=== PATIENT | female | born 1955 | race Caucasian/White ===

== ENCOUNTER → 2020-05-31 | Outpatient (CLI) | payer OTHER ==
[~2020-05-31] MED LIST: CONTRAST GIVEN. MC PRN; IOHEXOL 240 MG/ML 50ML VIAL. PO ONE; IOHEXOL 300 MG/ML 100ML VIAL. IV ONE
--- NOTE | 2020-05-31 11:26 | RAD ---
EXAM: CT Abdomen and Pelvis with IV contrast CLINICAL HISTORY: BENIGN LIPOMAOUS NEOPLASM OF SKIN AND SUBCUTANEOUS TISSUE OF TRUNK. COMPARISON: none TECHNIQUE: Helical CT of the abdomen and pelvis was performed following the administration of IV contrast. Axial, coronal and sagittal reformatted images were generated. ---PQRS compliance statement - One or more of the following individualized dose reduction techniques were utilized for this study: 1. Automated exposure control 2. Adjustment of the mA and/or kV according to patient size 3. Use of iterative reconstruction technique--- FINDINGS: Lower chest: Linear opacities lung bases likely scarring/atelectasis. Abdomen and pelvis: Liver and biliary system: Focal low-attenuation along falciform ligament likely focal fatty infiltration. Gallbladder is normal. No biliary ductal dilatation. Spleen: Unremarkable Pancreas: Unremarkable Adrenal glands: Unremarkable Kidneys: Symmetric nephrograms. Cortical thinning posterior aspect left kidney likely prior cortical scarring. No focal renal lesion. No hydronephrosis. No hydroureter. Lymph nodes/retroperitoneum: No abdominal or pelvic lymphadenopathy. Vessels: Aorta is normal in caliber with intermittent atherosclerotic calcifications. Bowel/Peritoneal cavity: Colonic diverticulosis particularly within the sigmoid colon with trace associated infiltration may be seen with acute diverticulitis. No loculated fluid collection. No small or large bowel dilatation. No bowel obstruction. No abdominal pelvic ascites. Abdominal wall: Small fat-containing periumbilical hernia is seen with trace infiltration may be symptomatic. Small fat-containing right inguinal hernia. Bladder: Unremarkable Bones: Initial tuberosity enthesopathy. Degenerative changes of the spine are seen. Trace anterolisthesis of L5 on S1. IMPRESSION: 1. Small fat-containing periumbilical hernia with trace associated infiltration, may be symptomatic. 2. Trace infiltration about sigmoid diverticula may represent changes of diverticulitis and can be correlated with patient's symptoms. No loculated fluid collection or evidence for perforation. 3. No evidence for bowel obstruction. Electronically signed by: Louie Mendoza MD (05/31/2020 11:23 AM) [id number]
== END ==
LOC: CT 08:42
PROVIDERS: ATTEND Nurse Practitioner Family
DX: K42.9 Umbilical hernia without obstruction or gangrene (principal); K40.90 Unilateral inguinal hernia, without obstruction or gangrene, not specified as recurrent; D17.1 Benign lipomatous neoplasm of skin and subcutaneous tissue of trunk
CPT/HCPCS: 74177; Q9966; Q9967

== ENCOUNTER → 2020-12-05 | Outpatient (CLI) | payer OTHER ==
--- NOTE | 2020-12-05 15:57 | RAD ---
EXAM: Thoracic spine, 3 views. HISTORY: Pain. COMPARISON: None. FINDINGS: 3 views of the thoracic spine are obtained. There is multilevel endplate remodeling and ant erior predominant spurring. No fracture is seen. There is no significant listhesis. There is also end plate remodeling with disc space narrowing and osteophytosis at C3-C4, not formally assessed on this exam. IMPRESSION: Multilevel degenerative change. No acute osseous finding. Electronically signed by: Liane Baker MD (12/05/2020 3:54 PM) [id number]
== END ==
LOC: RAD 14:31
PROVIDERS: ATTEND Nurse Practitioner Family
DX: M19.012 Primary osteoarthritis, left shoulder (principal); M77.8 Other enthesopathies, not elsewhere classified
CPT/HCPCS: 72072; 73030

== ENCOUNTER → 2021-01-19 | Outpatient (CLI) | payer OTHER ==
--- NOTE | 2021-01-19 09:25 | RAD ---
STUDY: CT thoracic spine without contrast INDICATION: Thoracic spine pain. Degeneration. COMPARISON: Thoracic spine radiographs 12/05/2020; CT abdomen/pelvis 05/31/2020 TECHNIQUE: Axial CT imaging of the thoracic spine performed without the use of contrast. Coronal and sagittal reformats were obtained. One or more of the following individualized dose reduction techniques were utilized for this examinat ion: 1. Automated exposure control 2. Adjustment of the mA and/or kV according to patient size 3. Use of iterative reconstruction technique. FINDINGS: No acute fracture or focally aggressive osseous process. Mild sigmoid thoracic curvature. Slight exaggeration of lower thoracic kyphosis. Multilevel paraverte bral osteophytes greater in size on the right particularly from T8-T9 through T12-L1. Moderate discog enic arthrosis at T12-L1 and mild scattered elsewhere. Facet arthrosis is mild at several levels such as bilaterally at T7-T8. No large disc osteophyte comp kait. No evidence for relevant central canal stenosis. No severe osseous neural foraminal stenosis. Scattered calcific atherosclerosis. Mild paraseptal cystic change at the upper lungs. No pulmonary no dule is identified that would warrant short-term follow-up. IMPRESSION: 1. No acute or aggressive osseous abnormality. 2. Mild sigmoid thoracic curvature and mild exaggeration of lower thoracic kyphosis. Moderate discog enic arthrosis at T12-L1 and mild at several additional levels. Mild facet arthrosis. There is no rainer dence for significant central canal or neural foraminal stenosis. If there is ongoing concern MRI wou ld be more sensitive to detect relevant stenoses. Electronically signed by: RITA TRAN MD (01/19/2021 9:22 AM) [facility]
== END ==
LOC: CT 08:07
PROVIDERS: ATTEND Nurse Practitioner Family
DX: M47.814 Spondylosis without myelopathy or radiculopathy, thoracic region (principal); M51.34 Other intervertebral disc degeneration, thoracic region; M43.8X4 Other specified deforming dorsopathies, thoracic region; M25.78 Osteophyte, vertebrae
CPT/HCPCS: 72128

== ENCOUNTER 2021-02-19 10:47 | Inpatient (IN) | payer SELFPAY ==
[~2021-02-19] VITALS: Ht 170.2 cm; Wt 78.6 kg
[2021-02-19 11:50] LABS: BASO % 1 % (0-3); EOS % 0 % (0-3); HEMATOCRIT 46.4 % (36.0-47.0); HEMOGLOBIN 16.1 g/dL (12.0-15.5); LYMPH # 1.1 x10^3/uL (1.0-4.8); LYMPH % 24 % (24-48); MEAN CORPUSCULAR HEMOGLOBIN 33 pg (25-35); MEAN CORPUSCULAR HGB CONC 35 g/dL (31-37); MEAN CORPUSCULAR VOLUME 95 fL (79-100); MONO # 0.6 x10^3/uL (0.0-1.1); MONO % 14 % (0-9); NEUT # 2.9 x10^3/uL (1.8-7.7); NEUT % 62 % (31-73); PLATELET COUNT 149 x10^3/uL (140-400); RED BLOOD COUNT 4.91 x10^6/uL (3.50-5.40); RED CELL DISTRIBUTION WIDTH 12.6 % (11.5-14.5); WHITE BLOOD COUNT 4.7 x10^3/uL (4.0-11.0)
[2021-02-19 11:51] LABS: BILIRUBIN,URINE NEGATIVE (NEG); CLARITY,URINE CLEAR; COLOR,URINE YELLOW; NITRITE,URINE NEGATIVE (NEG); PROTEIN,URINE NEGATIVE (NEG-TRACE); UROBILINOGEN,URINE 0.2 mg/dL (0.2 mg/dL)
[2021-02-19] MEDS ORDERED: IOHEXOL 300 MG/ML 100ML VIAL. IV ONE (12:00)
[2021-02-19] MEDS ORDERED: CONTRAST GIVEN. MC PRN (12:00)
[2021-02-19] MEDS ORDERED: fentaNYL PF VIAL 100 MCG/2 ML VIAL IVP ONE (12:00)
[2021-02-19] MEDS ORDERED: ONDANSETRON PF 4 MG/2 ML VIAL. IVP ONE (12:00)
[2021-02-19 12:01] LABS: BACTERIA,URINE 0 /HPF (0-FEW); RBC,URINE 0 /HPF (0-2); WBC,URINE 0 /HPF (0-4)
[2021-02-19 12:05] LABS: CALCIUM 8.6 mg/dL (8.5-10.1); CREATININE 0.7 mg/dL (0.6-1.0); GFR 84.5; POTASSIUM 3.8 mmol/L (3.5-5.1)
--- NOTE | 2021-02-19 12:09 | ED.ADGEN ---
Past Medical History Additional Past Medical Histor: hernia x 2 Past Surgical History: Other Additional Past Surgical Histo: R hip General Adult EDM: Chief Complaint: ABDOMINAL PAIN HPI: HPI: Patient is a 65 year old female who presents to the emergency department with complaints of pain in her right abdomen and flank for the last 3 days. Patient states she had a fever over 101 earlier today. She reports nausea at this time but denies any vomiting, diarrhea, difficulty voiding, dysuria, hematuria, or increased urinary frequency. Patient states she has a chronic smoker's cough, she denies any recent change in her cough, chest pain, shortness of breath, palpitations, dizziness, or loss of taste/smell. Patient reports she has a hi story of an umbilical and a right inguinal hernia. She states that her side is hurt so bad that she has not been able to wear her umbilical hernia binder. She has not been immunized against COVID-19, she was going to go this week to get the immunization but was not feeling well so she postponed her plans. She currently rates her pain a 6 out of 10 on the pain scale, she denies any alleviating factors, the pain is worse with palpation. Review of Systems: Review of Systems: Complete ROS is negative unless otherwise noted in HPI. Current Medications: Current Medications Medications (Trade) Dose Ordered Sig/Dalia Start Time Stop Time Status Last Admin Dose Admin Acetaminophen (Tylenol) 650 mg 1X ONCE 02/19/21 13:30 02/19/21 13:32 DC Fentanyl Citrate (Fentanyl 2ml Vial) 50 mcg 1X ONCE 02/19/21 12:00 02/19/21 12:01 DC Info (CONTRAST GIVEN -- Rx MONITORING) 1 each PRN DAILY PRN 02/19/21 12:00 02/21/21 11:59 Iohexol (Omnipaque 300 Mg/ml) 75 ml 1X ONCE 02/19/21 12:00 02/19/21 12:01 DC 02/19/21 12:00 75 ML Morphine Sulfate (Morphine Sulfate) 2 mg 1X ONCE 02/19/21 13:45 02/19/21 13:46 DC 02/19/21 13:45 2 MG Ondansetron HCl (Zofran) 4 mg 1X ONCE 02/19/21 12:00 02/19/21 12:01 DC Sodium Chloride 1,000 ml @ 1,000 mls/hr 1X ONCE 02/19/21 13:00 02/19/21 13:59 DC 02/19/21 13:44 1,000 MLS/HR Allergies: Allergies: Allergies Coded Allergies Type Severity Reaction Last Updated Verified No Known Drug Allergies 05/31/20 No Physical Exam: PE: See Above Constitutional: Well developed, well nourished, no acute distress, non-toxic appearance. [] HENT: Normocephalic, atraumatic, bilateral external ears normal, nose normal. [] Eyes: PERRLA, EOMI, conjunctiva normal, no discharge. [] Neck: Normal range of motion, no stridor. [] Cardiovascular:Heart rate regular rhythm Lungs & Thorax: Respirations even and unlabored, no retractions, no respiratory distress Abdomen: soft, right upper quadrant and right lower quadrant tenderness to palpation, no rebound tenderness, no guarding, no palpable mass, no pulsatile mass Back: No CVA tenderness Skin: Warm, dry, no erythema, no rash. [] Extremities: No cyanosis, ROM intact, no edema. [] Neurologic: Alert and oriented X 3, normal motor, normal sensory, no focal deficits noted. [] Psychologic: Affect normal, judgement normal, mood normal. [] Current Patient Data: Labs: Laboratory Tests Test 02/19/21 11:15 White Blood Count 4.7 x10^3/uL (4.0-11.0) Red Blood Count 4.91 x10^6/uL (3.50-5.40) Hemoglobin 16.1 g/dL (12.0-15.5) H Hematocrit 46.4 % (36.0-47.0) Mean Corpuscular Volume 95 fL (79-100) Mean Corpuscular Hemoglobin 33 pg (25-35) Mean Corpuscular Hemoglobin Concent 35 g/dL (31-37) Red Cell Distribution Width 12.6 % (11.5-14.5) Platelet Count 149 x10^3/uL (140-400) Neutrophils (%) (Auto) 62 % (31-73) Lymphocytes (%) (Auto) 24 % (24-48) Monocytes (%) (Auto) 14 % (0-9) H Eosinophils (%) (Auto) 0 % (0-3) Basophils (%) (Auto) 1 % (0-3) Neutrophils # (Auto) 2.9 x10^3/uL (1.8-7.7) Lymphocytes # (Auto) 1.1 x10^3/uL (1.0-4.8) Monocytes # (Auto) 0.6 x10^3/uL (0.0-1.1) Eosinophils # (Auto) 0.0 x10^3/uL (0.0-0.7) Basophils # (Auto) 0.0 x10^3/uL (0.0-0.2) Urine Collection Type Unknown Urine Color Yellow Urine Clarity Clear Urine pH 6.0 (<5.0-8.0) Urine Specific Sikes 1.010 (1.000-1.030) Urine Protein Negative mg/dL (NEG-TRACE) Urine Glucose (UA) Negative mg/dL (NEG) Urine Ketones (Stick) Negative mg/dL (NEG) Urine Blood Moderate (NEG) Urine Nitrite Negative (NEG) Urine Bilirubin Negative (NEG) Urine Urobilinogen Dipstick 0.2 mg/dL (0.2 mg/dL) Urine Leukocyte Esterase Negative (NEG) Urine RBC 0 /HPF (0-2) Urine WBC 0 /HPF (0-4) Urine Squamous Epithelial Cells Few /LPF Urine Bacteria 0 /HPF (0-FEW) Sodium Level 135 mmol/L (136-145) L Potassium Level 3.8 mmol/L (3.5-5.1) Chloride Level 96 mmol/L (98-107) L Carbon Dioxide Level 29 mmol/L (21-32) Anion Gap 10 (6-14) Blood Urea Nitrogen 5 mg/dL (7-20) L Creatinine 0.7 mg/dL (0.6-1.0) Estimated GFR (Cockcroft-Gault) 84.5 BUN/Creatinine Ratio 7 (6-20) Glucose Level 114 mg/dL (70-99) H Calcium Level 8.6 mg/dL (8.5-10.1) Magnesium Level 1.6 mg/dL (1.8-2.4) L Total Bilirubin 0.4 mg/dL (0.2-1.0) Aspartate Amino Transferase (AST) 21 U/L (15-37) Alanine Aminotransferase (ALT) 22 U/L (14-59) Alkaline Phosphatase 77 U/L (46-116) Troponin I Quantitative < 0.017 ng/mL (0.000-0.055) Total Protein 7.9 g/dL (6.4-8.2) Albumin 3.8 g/dL (3.4-5.0) Albumin/Globulin Ratio 0.9 (1.0-1.7) L Lipase 152 U/L (73-393) Laboratory Tests 02/19/21 11:15 Laboratory Tests 02/19/21 11:15 Vital Signs: Vital Signs Date Time Temp Pulse Resp B/P (MAP) Pulse Ox O2 Delivery O2 Flow Rate FiO2 02/19/21 13:45 18 93 2.0 02/19/21 11:05 98.4 90 137/86 Room Air 98.4 EKG: EK-sinus rhythm rate 81 WPW present with abnormal left axis deviation no STEMI, read by Dr. Aquino [] Heart Score: C/O Chest Pain: No Radiology/Procedures: Radiology/Procedures: PROCEDURE: CHEST AP ONLY EXAMINATION: Chest radiograph. VIEWS: Single view COMPARISON: 01/19/2021 INDICATION:65 years, Female, cough and hypoxia. FINDINGS: Normal cardiomediastinal silhouette. Bibasilar subsegmental atelectasis. No focal consolidation. No pleural effusion or pneumothorax. No acute osseous process. IMPRESSION: Bibasilar subsegmental atelectasis. Otherwise, no acute cardiopulmonary process. Electronically signed by: Charles Bell MD (02/19/2021 12:31 PM) [id number] PROCEDURE: CT ABD PELV W/ IV CONTRST ONLY EXAMINATION: CT abdomen and pelvis with IV contrast. INDICATION:65 years, Female, right-sided abdominal pain. TECHNIQUE: Axial CT images of the abdomen and pelvis were obtained. Coronal and sagittal reformatted performed. COMPARISON: 05/31/2020. Exposure: One or more of the following individualized dose reduction techniques were utilized for this examination: 1. Automated exposure control 2. Adjustment of the mA and/or kV according to patient size 3. Use of iterative reconstruction technique. FINDINGS: LOWER CHEST: Unremarkable ABDOMEN/PELVIS: Normal morphology and size of the liver with homogeneous enhancement. Focal fat infiltration adjacent to falciform ligament. No suspicious focal hepatic lesion. Spleen, gallbladder and biliary ducts. Atrophic pancreatic parenchyma. Nodular thickening of the left adrenal gland without discrete nodule. Right adrenal gland is unremarkable. No hydronephrosis in either kidney. No nephrolithiasis. Colonic diverticulosis without diverticulitis. No bowel dilatation. Normal appendix. Mild aortoiliac atherosclerotic calcifications without significant narrowing. Mesenteric arteries and portal vein are patent. No pneumoperitoneum or ascites. No abdominopelvic lymphadenopathy by size criteria. Fat stranding in the midline and right paramidline greater omentum which herniated throughout small to moderate size umbilical hernia. Unremarkable urinary bladder. Punctate calcifications in the uterus, nonspecific. No suspicious pelvic masses. MUSCULOSKELETAL: Unchanged grade 1 anterolisthesis of L5 over S1 with severe degenerative changes. Multilevel changes in the lumbar spine. Small fat-containing right inguinal hernia. Umbilical hernia as described above. IMPRESSION: Small to moderate-sized supraumbilical hernia containing omental fat with haziness, this hernia is slightly increasing size since May 2020. Additional, new fat stranding seen in the midline and right paramidline omental fat at the level of hernia. Findings may reflect acute omental fat inflammation. Clinical correlation is advised. Electronically signed by: Charles Bell MD (02/19/2021 1:11 PM) [id number] [] Course & Med Decision Making: Course & Med Decision Making Pertinent Labs and Imaging studies reviewed. (See chart for details) 1355-spoke with Dr. Baker who is the admitting physician, and care was assumed following discussion of patient. Will admit patient for intractable abdominal pain, hypoxia, and PUI. Will consult Dr. Amado Patient's vital signs stable.. Patient remains afebrile, appears nontoxic, respirations even and unlabored. Patient will be admitted to the medical/surgical floor. Patient's case and plan of care also discussed with Dr. Aquino [] Antoinette Disclaimer: Antoinette Disclaimer: This electronic medical record was generated, in whole or in part, using a voice recognition dictation system. Departure Departure Referrals: SONIA STORM NP (PCP) DALLIN DELUCA APRN Feb 19, 2021 12:09
[2021-02-19 12:11] LABS: ALBUMIN 3.8 g/dL (3.4-5.0); ALBUMIN/GLOBULIN RATIO 0.9 (1.0-1.7); MAGNESIUM 1.6 mg/dL (1.8-2.4); TOTAL BILIRUBIN 0.4 mg/dL (0.2-1.0); TOTAL PROTEIN 7.9 g/dL (6.4-8.2)
--- NOTE | 2021-02-19 12:33 | RAD ---
EXAMINATION: Chest radiograph. VIEWS: Single view COMPARISON: 01/19/2021 INDICATION:65 years, Female, cough and hypoxia. FINDINGS: Normal cardiomediastinal silhouette. Bibasilar subsegmental atelectasis. No focal consolidation. No p leural effusion or pneumothorax. No acute osseous process. IMPRESSION: Bibasilar subsegmental atelectasis. Otherwise, no acute cardiopulmonary process. Electronically signed by: Charles Bell MD (02/19/2021 12:31 PM) [id number]
[2021-02-19] MEDS ORDERED: IV NORMAL SALINE 1000ML BAG 1,000 ML IV ONE (13:00)
--- NOTE | 2021-02-19 13:13 | RAD ---
EXAMINATION: CT abdomen and pelvis with IV contrast. INDICATION:65 years, Female, right-sided abdominal pain. TECHNIQUE: Axial CT images of the abdomen and pelvis were obtained. Coronal and sagittal reformatted performed. COMPARISON: 05/31/2020. Exposure: One or more of the following individualized dose reduction techniques were utilized for thi s examination: 1. Automated exposure control 2. Adjustment of the mA and/or kV according to patient size 3. Use of iterative reconstruction technique. FINDINGS: LOWER CHEST: Unremarkable ABDOMEN/PELVIS: Normal morphology and size of the liver with homogeneous enhancement. Focal fat infiltration adjacent to falciform ligament. No suspicious focal hepatic lesion. Spleen, gallbladder and biliary ducts. At rophic pancreatic parenchyma. Nodular thickening of the left adrenal gland without discrete nodule. R ight adrenal gland is unremarkable. No hydronephrosis in either kidney. No nephrolithiasis. Colonic diverticulosis without diverticulitis. No bowel dilatation. Normal appendix. Mild aortoiliac atherosclerotic calcifications without significant narrowing. Mesenteric arteries and portal vein are patent. No pneumoperitoneum or ascites. No abdominopelvic lymphadenopathy by size criteria. Fat stra nding in the midline and right paramidline greater omentum which herniated throughout small to modera te size umbilical hernia. Unremarkable urinary bladder. Punctate calcifications in the uterus, nonspe cific. No suspicious pelvic masses. MUSCULOSKELETAL: Unchanged grade 1 anterolisthesis of L5 over S1 with severe degenerative changes. Multilevel changes in the lumbar spine. Small fat-containing right inguinal hernia. Umbilical hernia as described above . IMPRESSION: Small to moderate-sized supraumbilical hernia containing omental fat with haziness, this hernia is sl ightly increasing size since May 2020. Additional, new fat stranding seen in the midline and righ t paramidline omental fat at the level of hernia. Findings may reflect acute omental fat inflammation . Clinical correlation is advised. Electronically signed by: Charles Bell MD (02/19/2021 1:11 PM) [id number]
[2021-02-19] MEDS ORDERED: ACETAMINOPHEN 325 MG TABLET. PO ONE (13:30)
[2021-02-19] MEDS ORDERED: MORPHINE SULFATE 2 MG/ML INJ. IV ONE (13:45)
[2021-02-19] MEDS ORDERED: MORPHINE SULFATE 4 MG/ML INJ. IV ONE (13:45)
--- NOTE | 2021-02-19 13:57 | PDOC1 ---
History and Physical Date of Admission Date of Admission DATE: 02/19/21 TIME: 13:54 Identification/Chief Complaint Chief Complaint Abdominal pain Source Source: Patient History of Present Illness History of Present Illness Ms Harden is a 65 year old female with past medical history 2 pack/day smoking and right inguinal and abdominal wall hernia who presents to ED with her daughter c/o pain in her right abdomen and flank for the last 3 days. Pain is sharp like a "stitch" in her side and can improve with positioning. It is worsened with deep inspiration. She currently rates her pain a 6 out of 10 on the pain scale after having morphine. She has associated nausea but no vomiting no diarrhea. No urinary symptoms no dysuria or hematuria frequency. She has a history of an umbilical and a right inguinal hernia and because of her right flank pain has been unable to wear her umbilical hernia binder. At baseline she has what she calls a "smoker's cough". This has not worsened recently. She does note she has cut back from 2 packs a day to 1 pack a day smoking but every time she quit smoking her cough gets worse for about 3 to 7 days and improves when she started smoking again. She expresses interest in quitting smoking. In ED was noted to have O2 saturations 87% and was placed on nasal cannula O2 with improvement. She denies any recent change in her cough, chest pain, shortness of breath, palpitations, dizziness, or loss of taste/smell. No COVID 19 exposures. She has not been immunized against COVID-19, she was going to go this week to get the immunization but was not feeling well so she postponed her plans., she denies any alleviating factors, the pain is worse with palpation. Labs with WBC 4.7, Hb 16.1, platelets 149, NA 135, K3.8, BUN 5, CR 0.7, glucose 114, magnesium 1.6, lipase 152, LFTs within normal laboratory limits, troponin 0, urinalysis bland. Chest radiograph with bibasilar atelectasis otherwise looks like emphysematous changes. CT abdomen pelvis with some inflamed fat stranding but no incarceration of her umbilical hernia. Admitted for pain control and supplementary O2 Past Medical History Pulmonary: Bronchitis GI: Other (Right inguinal and umbilical hernia) Past Surgical History Past Surgical History Right hip surgery Family History Family History: Chronic Bronchitis Social History Smoke: 2 packs per day ALCOHOL: none Drugs: None Current Medications Current Medications Current Medications Ondansetron HCl (Zofran) 4 mg 1X ONCE IVP ; Start 02/19/21 at 12:00; Stop 02/19/21 at 12:01; Status DC Fentanyl Citrate (Fentanyl 2ml Vial) 50 mcg 1X ONCE IVP ; Start 02/19/21 at 12:00; Stop 02/19/21 at 12:01; Status DC Iohexol (Omnipaque 300 Mg/ml) 75 ml 1X ONCE IV Last administered on 02/19/21at 12:00; Start 02/19/21 at 12:00; Stop 02/19/21 at 12:01; Status DC Info (CONTRAST GIVEN -- Rx MONITORING) 1 each PRN DAILY PRN MC SEE COMMENTS; Start 02/19/21 at 12:00; Stop 02/21/21 at 11:59 Sodium Chloride 1,000 ml @ 1,000 mls/hr 1X ONCE IV Last administered on 02/19/21at 13:44; Start 02/19/21 at 13:00; Stop 02/19/21 at 13:59 Acetaminophen (Tylenol) 650 mg 1X ONCE PO ; Start 02/19/21 at 13:30; Stop 02/19/21 at 13:32; Status DC Morphine Sulfate (Morphine Sulfate) 2 mg 1X ONCE IV ; Start 02/19/21 at 13:45; Stop 02/19/21 at 13:46; Status DC Morphine Sulfate (Morphine Sulfate) 2 mg 1X ONCE IV Last administered on 02/19/21at 13:45; Start 02/19/21 at 13:45; Stop 02/19/21 at 13:46; Status DC Magnesium Sulfate 50 ml @ 25 mls/hr 1X ONCE IV ; Start 02/19/21 at 14:00; Stop 02/19/21 at 15:59 Allergies Allergies: Coded Allergies: No Known Drug Allergies (Unverified , 05/31/20) ROS General: YES: Fatigue, Malaise; No: Chills, Night Sweats, Appetite, Other PSYCHOLOGICAL ROS: YES: Anxiety; No: Behavioral Disorder, Concentration difficultie, Decreased libido, Depression, Disorientation, Hallucinations, Hostility, Irritablity, Memory difficulties, Mood Swings, Obsessive thoughts, Physical abuse, Sexual abuse, Sleep disturbances, Suicidal ideation, Other Eyes: No Blurry vision, No Decreased vision, No Double vision, No Dry eyes, No Excessive tearing, No Eye Pain, No Itchy Eyes, No Loss of vision, No Photophobia, No Scotomata, No Uses contacts, No Uses glasses, No Other HEENT: No: Heacaches, Visual Changes, Hearing change, Nasal congestion, Nasal discharge, Oral lesions, Sinus pain, Sore Throat, Epistaxis, Sneezing, Snoring, Tinnitus, Vertigo, Vocal changes, Other ALLERGY AND IMMUNOLOGY: No: Hives, Insect Bite Sensitivity, Itchy/Watery Eyes, Nasal Congestion, Post Nasal Drip, Seasonal Allergies, Other Hematological and Lymphatic: No: Bleeding Problems, Blood Clots, Blood Transfusions, Brusing, Night Sweats, Pallor, Swollen Lymph Nodes, Other ENDOCRINE: No: Breast Changes, Galactorrhea, Hair Pattern Changes, Hot Flashes, Malaise/lethargy, Mood Swings, Palpitations, Polydipsia/polyuria, Skin Changes, Temperature Intolerance, Unexpected Weight Changes, Other Breast: No New/Changing Breast Lumps, No Nipple changes, No Nipple discharge, No Other Respiratory: YES: Cough; No: Hemoptysis, Orthopnea, Pleuritic Pain, Shortness of breath, SOB with excertion, Sputum Changes, Stridor, Tachypnea, Wheezing, Other Cardiovascular: No Chest Pain, No Palpitations, No Orthopnea, No Paroxysmal Noc. Dyspnea, No Edema, No Lt Headedness, No Other Gastrointestinal: Yes Nausea, Yes Abdominal Pain; No Vomiting, No Diarrhea, No Constipation, No Melena, No Hematochezia, No Other Genitourinary: No Dysuria, No Frequency, No Incontinence, No Hematuria, No Retention, No Discharge, No Urgency, No Pain, No Flank Pain, No Other, No , No , No , No , No , No , No Musculoskeletal: No Gait Disturbance, No Joint Pain, No Joint Stiffness, No Joint Swelling, No Muscle Pain, No Muscular Weakness, No Pain In:, No Swelling In:, No Other Neurological: No Behavorial Changes, No Bowel/Bladder ControlChng, No Confusion, No Dizziness, No Gait Disturbance, No Headaches, No Impaired Coord/balance, No Memory Loss, No Numbness/Tingling, No Seizures, No Speech Problems, No Tremors, No Visual Changes, No Weakness, No Other Skin: No Dry Skin, No Eczema, No Hair Changes, No Lumps, No Mole Changes, No Mottling, No Nail Changes, No Pruritus, No Rash, No Skin Lesion Changes, No Other, No Acne Physical Exam General: Alert, Oriented X3, Cooperative, moderate distress HEENT: Atraumatic, PERRLA, EOMI, Mucous membr. moist/pink Lungs: Other (Scattered wheezes bilaterally) Heart: S1S2, RRR, no thrills, no rubs, no gallops, no murmurs Abdomen: Normal bowel sounds, Soft, No hepatosplenomegaly, No masses, Other (umbilical and right groin and flank tenderness) Rectal Exam: not examined Extremities: No clubbing, No cyanosis, No edema, Normal pulses, No tenderness/swelling Skin: No rashes, No breakdown, No significant lesion Neuro: Normal gait, Normal speech, Strength at 5/5 X4 ext, Normal tone, Sensation intact, Cranial nerves 3-12 NL, Reflexes 2+ Psych/Mental Status: Mental status NL, Mood NL Vitals Vitals Vital Signs Date Time Temp Pulse Resp B/P (MAP) Pulse Ox O2 Delivery O2 Flow Rate FiO2 02/19/21 13:45 18 93 2.0 02/19/21 11:05 98.4 90 137/86 Room Air 98.4 Labs Labs Laboratory Tests Test 02/19/21 11:15 White Blood Count 4.7 x10^3/uL (4.0-11.0) Red Blood Count 4.91 x10^6/uL (3.50-5.40) Hemoglobin 16.1 g/dL (12.0-15.5) Hematocrit 46.4 % (36.0-47.0) Mean Corpuscular Volume 95 fL (79-100) Mean Corpuscular Hemoglobin 33 pg (25-35) Mean Corpuscular Hemoglobin Concent 35 g/dL (31-37) Red Cell Distribution Width 12.6 % (11.5-14.5) Platelet Count 149 x10^3/uL (140-400) Neutrophils (%) (Auto) 62 % (31-73) Lymphocytes (%) (Auto) 24 % (24-48) Monocytes (%) (Auto) 14 % (0-9) Eosinophils (%) (Auto) 0 % (0-3) Basophils (%) (Auto) 1 % (0-3) Neutrophils # (Auto) 2.9 x10^3/uL (1.8-7.7) Lymphocytes # (Auto) 1.1 x10^3/uL (1.0-4.8) Monocytes # (Auto) 0.6 x10^3/uL (0.0-1.1) Eosinophils # (Auto) 0.0 x10^3/uL (0.0-0.7) Basophils # (Auto) 0.0 x10^3/uL (0.0-0.2) Urine Collection Type Unknown Urine Color Yellow Urine Clarity Clear Urine pH 6.0 (<5.0-8.0) Urine Specific [place] 1.010 (1.000-1.030) Urine Protein Negative mg/dL (NEG-TRACE) Urine Glucose (UA) Negative mg/dL (NEG) Urine Ketones (Stick) Negative mg/dL (NEG) Urine Blood Moderate (NEG) Urine Nitrite Negative (NEG) Urine Bilirubin Negative (NEG) Urine Urobilinogen Dipstick 0.2 mg/dL (0.2 mg/dL) Urine Leukocyte Esterase Negative (NEG) Urine RBC 0 /HPF (0-2) Urine WBC 0 /HPF (0-4) Urine Squamous Epithelial Cells Few /LPF Urine Bacteria 0 /HPF (0-FEW) Sodium Level 135 mmol/L (136-145) Potassium Level 3.8 mmol/L (3.5-5.1) Chloride Level 96 mmol/L (98-107) Carbon Dioxide Level 29 mmol/L (21-32) Anion Gap 10 (6-14) Blood Urea Nitrogen 5 mg/dL (7-20) Creatinine 0.7 mg/dL (0.6-1.0) Estimated GFR (Cockcroft-Gault) 84.5 BUN/Creatinine Ratio 7 (6-20) Glucose Level 114 mg/dL (70-99) Calcium Level 8.6 mg/dL (8.5-10.1) Magnesium Level 1.6 mg/dL (1.8-2.4) Total Bilirubin 0.4 mg/dL (0.2-1.0) Aspartate Amino Transf (AST/SGOT) 21 U/L (15-37) Alanine Aminotransferase (ALT/SGPT) 22 U/L (14-59) Alkaline Phosphatase 77 U/L (46-116) Total Protein 7.9 g/dL (6.4-8.2) Albumin 3.8 g/dL (3.4-5.0) Albumin/Globulin Ratio 0.9 (1.0-1.7) Lipase 152 U/L (73-393) Laboratory Tests Test 02/19/21 11:15 White Blood Count 4.7 x10^3/uL (4.0-11.0) Red Blood Count 4.91 x10^6/uL (3.50-5.40) Hemoglobin 16.1 g/dL (12.0-15.5) Hematocrit 46.4 % (36.0-47.0) Mean Corpuscular Volume 95 fL (79-100) Mean Corpuscular Hemoglobin 33 pg (25-35) Mean Corpuscular Hemoglobin Concent 35 g/dL (31-37) Red Cell Distribution Width 12.6 % (11.5-14.5) Platelet Count 149 x10^3/uL (140-400) Neutrophils (%) (Auto) 62 % (31-73) Lymphocytes (%) (Auto) 24 % (24-48) Monocytes (%) (Auto) 14 % (0-9) Eosinophils (%) (Auto) 0 % (0-3) Basophils (%) (Auto) 1 % (0-3) Neutrophils # (Auto) 2.9 x10^3/uL (1.8-7.7) Lymphocytes # (Auto) 1.1 x10^3/uL (1.0-4.8) Monocytes # (Auto) 0.6 x10^3/uL (0.0-1.1) Eosinophils # (Auto) 0.0 x10^3/uL (0.0-0.7) Basophils # (Auto) 0.0 x10^3/uL (0.0-0.2) Urine Collection Type Unknown Urine Color Yellow Urine Clarity Clear Urine pH 6.0 (<5.0-8.0) Urine Specific [place] 1.010 (1.000-1.030) Urine Protein Negative mg/dL (NEG-TRACE) Urine Glucose (UA) Negative mg/dL (NEG) Urine Ketones (Stick) Negative mg/dL (NEG) Urine Blood Moderate (NEG) Urine Nitrite Negative (NEG) Urine Bilirubin Negative (NEG) Urine Urobilinogen Dipstick 0.2 mg/dL (0.2 mg/dL) Urine Leukocyte Esterase Negative (NEG) Urine RBC 0 /HPF (0-2) Urine WBC 0 /HPF (0-4) Urine Squamous Epithelial Cells Few /LPF Urine Bacteria 0 /HPF (0-FEW) Sodium Level 135 mmol/L (136-145) Potassium Level 3.8 mmol/L (3.5-5.1) Chloride Level 96 mmol/L (98-107) Carbon Dioxide Level 29 mmol/L (21-32) Anion Gap 10 (6-14) Blood Urea Nitrogen 5 mg/dL (7-20) Creatinine 0.7 mg/dL (0.6-1.0) Estimated GFR (Cockcroft-Gault) 84.5 BUN/Creatinine Ratio 7 (6-20) Glucose Level 114 mg/dL (70-99) Calcium Level 8.6 mg/dL (8.5-10.1) Magnesium Level 1.6 mg/dL (1.8-2.4) Total Bilirubin 0.4 mg/dL (0.2-1.0) Aspartate Amino Transf (AST/SGOT) 21 U/L (15-37) Alanine Aminotransferase (ALT/SGPT) 22 U/L (14-59) Alkaline Phosphatase 77 U/L (46-116) Total Protein 7.9 g/dL (6.4-8.2) Albumin 3.8 g/dL (3.4-5.0) Albumin/Globulin Ratio 0.9 (1.0-1.7) Lipase 152 U/L (73-393) Images Images Chest radiograph: Normal cardiomediastinal silhouette. Bibasilar subsegmental atelectasis. No focal consolidation. No pleural effusion or pneumothorax. No acute osseous process. IMPRESSION: Bibasilar subsegmental atelectasis. Otherwise, no acute cardiopulmonary process. CT abdomen/pelvis: LOWER CHEST: Unremarkable ABDOMEN/PELVIS: Normal morphology and size of the liver with homogeneous enhancement. Focal fat infiltration adjacent to falciform ligament. No suspicious focal hepatic lesion. Spleen, gallbladder and biliary ducts. Atrophic pancreatic parenchyma. Nodular thickening of the left adrenal gland without discrete nodule. Right adrenal gland is unremarkable. No hydronephrosis in either kidney. No nephrolithiasis. Colonic diverticulosis without diverticulitis. No bowel dilatation. Normal appendix. Mild aortoiliac atherosclerotic calcifications without significant narrowing. Mesenteric arteries and portal vein are patent. No pneumoperitoneum or ascites. No abdominopelvic lymphadenopathy by size criteria. Fat stranding in the midline and right paramidline greater omentum which herniated throughout small to moderate size umbilical hernia. Unremarkable urinary bladder. Punctate calcifications in the uterus, nonspecific. No suspicious pelvic masses. MUSCULOSKELETAL: Unchanged grade 1 anterolisthesis of L5 over S1 with severe degenerative changes. Multilevel changes in the lumbar spine. Small fat-containing right inguinal hernia. Umbilical hernia as described above. IMPRESSION: Small to moderate-sized supraumbilical hernia containing omental fat with hazine ss, this hernia is slightly increasing size since May 2020. Additional, new fat stranding seen in the midline and right paramidline omental fat at the level of hernia. Findings may reflect acute omental fat inflammation. Clinical correlation is advised. VTE Prophylaxis Ordered VTE Prophylaxis Devices: No VTE Pharmacological Prophylaxi: Yes Assessment/Plan Assessment/Plan A/P: Intractable abdominal pain - possibly from fat inflammation from hernia, will admit for pain control. Given smoking and easily reducible hernia high risk for surgery. Acute respiratory failure with hypoxia - likely mild COPD exacerbation, will give nebs, steroids. Smoking cessation emphasized. Wean O2 as tolerated. COVID tested Hypokalemia and hypomagnesemia - will replace Smoker - counseled on cessation Chronic right inguinal and periumbilical hernia - as above, no immediate surgical needs. General surgery consulted FEN - General diet PPX - lovenox FULL CODE Dispo - inpatient for pain control, hypoxia Justifications for Admission Other Justification NICOLASA COREAS MD Feb 19, 2021 13:57
[2021-02-19] MEDS ORDERED: ONDANSETRON PF 4 MG/2 ML VIAL. IV PRN ×2 (14:00→15:30)
[2021-02-19] MEDS ORDERED: MAGNESIUM SULFATE 2GM 50 ML IV ONE (14:00)
--- NOTE | 2021-02-19 15:13 | PDOC2 ---
CONSULT Date of Consult Date of Consult DATE: 02/19/21 TIME: 15:08 Reason for Consult Reason for Consult: umbilical hernia, RIH Referring Physician Referring Physician: Dr. Baker Identification/Chief Complaint Chief Complaint right groin pain and bulge Source Source: Chart review, Patient History of Present Illness Reason for Visit: 65 yo F with long standing history of umbilical and Right inguinal bulge. Wears a abdominal binder. Today developed pain at right groin. Pt seen in ER and hernia sites reduced. Denies N/V, F/C. Past Medical History Cardiovascular: No pertinent hx Past Surgical History Past Surgical History: Total hip replacement Family History Family History: No Significant Social History 2 packs per day ALCOHOL: rare Current Medications Current Medications Current Medications Ondansetron HCl (Zofran) 4 mg 1X ONCE IVP ; Start 02/19/21 at 12:00; Stop 02/19/21 at 12:01; Status DC Fentanyl Citrate (Fentanyl 2ml Vial) 50 mcg 1X ONCE IVP ; Start 02/19/21 at 12:00; Stop 02/19/21 at 12:01; Status DC Iohexol (Omnipaque 300 Mg/ml) 75 ml 1X ONCE IV Last administered on 02/19/21at 12:00; Start 02/19/21 at 12:00; Stop 02/19/21 at 12:01; Status DC Info (CONTRAST GIVEN -- Rx MONITORING) 1 each PRN DAILY PRN MC SEE COMMENTS; Start 02/19/21 at 12:00; Stop 02/21/21 at 11:59 Sodium Chloride 1,000 ml @ 1,000 mls/hr 1X ONCE IV Last administered on 02/19/21at 13:44; Start 02/19/21 at 13:00; Stop 02/19/21 at 13:59; Status DC Acetaminophen (Tylenol) 650 mg 1X ONCE PO ; Start 02/19/21 at 13:30; Stop 02/19/21 at 13:32; Status DC Morphine Sulfate (Morphine Sulfate) 2 mg 1X ONCE IV ; Start 02/19/21 at 13:45; Stop 02/19/21 at 13:46; Status DC Morphine Sulfate (Morphine Sulfate) 2 mg 1X ONCE IV Last administered on 02/19/21at 13:45; Start 02/19/21 at 13:45; Stop 02/19/21 at 13:46; Status DC Magnesium Sulfate 50 ml @ 25 mls/hr 1X ONCE IV Last administered on 02/19/21at 15:02; Start 02/19/21 at 14:00; Stop 02/19/21 at 15:59 Ondansetron HCl (Zofran) 4 mg PRN Q8HRS PRN IV NAUSEA/VOMITING; Start 02/19/21 at 14:00; Stop 02/20/21 at 13:59 Morphine Sulfate (Morphine Sulfate) 2 mg PRN Q2HR PRN IV PAIN; Start 02/19/21 at 14:00; Stop 02/20/21 at 13:59 Allergies Allergies: Coded Allergies: No Known Drug Allergies (Unverified , 05/31/20) ROS Gastrointestinal: Yes Abdominal Pain Physical Exam General: Alert, Oriented X3, Cooperative, mild distress, Other (some increased work of breathing) HEENT: Atraumatic Lungs: Normal air movement Abdomen: Soft, No tenderness, Other (reducible right groin and umbilical hernia) Extremities: No clubbing, No cyanosis Skin: No rashes, No breakdown Neuro: Normal speech, Sensation intact Psych/Mental Status: Mental status NL, Mood NL Vitals VITALS Vital Signs Date Time Temp Pulse Resp B/P (MAP) Pulse Ox O2 Delivery O2 Flow Rate FiO2 02/19/21 13:45 18 93 2.0 02/19/21 11:05 98.4 90 137/86 Room Air 98.4 Labs Labs Laboratory Tests Test 02/19/21 11:15 White Blood Count 4.7 x10^3/uL (4.0-11.0) Red Blood Count 4.91 x10^6/uL (3.50-5.40) Hemoglobin 16.1 g/dL (12.0-15.5) Hematocrit 46.4 % (36.0-47.0) Mean Corpuscular Volume 95 fL (79-100) Mean Corpuscular Hemoglobin 33 pg (25-35) Mean Corpuscular Hemoglobin Concent 35 g/dL (31-37) Red Cell Distribution Width 12.6 % (11.5-14.5) Platelet Count 149 x10^3/uL (140-400) Neutrophils (%) (Auto) 62 % (31-73) Lymphocytes (%) (Auto) 24 % (24-48) Monocytes (%) (Auto) 14 % (0-9) Eosinophils (%) (Auto) 0 % (0-3) Basophils (%) (Auto) 1 % (0-3) Neutrophils # (Auto) 2.9 x10^3/uL (1.8-7.7) Lymphocytes # (Auto) 1.1 x10^3/uL (1.0-4.8) Monocytes # (Auto) 0.6 x10^3/uL (0.0-1.1) Eosinophils # (Auto) 0.0 x10^3/uL (0.0-0.7) Basophils # (Auto) 0.0 x10^3/uL (0.0-0.2) Urine Collection Type Unknown Urine Color Yellow Urine Clarity Clear Urine pH 6.0 (<5.0-8.0) Urine Specific [place] 1.010 (1.000-1.030) Urine Protein Negative mg/dL (NEG-TRACE) Urine Glucose (UA) Negative mg/dL (NEG) Urine Ketones (Stick) Negative mg/dL (NEG) Urine Blood Moderate (NEG) Urine Nitrite Negative (NEG) Urine Bilirubin Negative (NEG) Urine Urobilinogen Dipstick 0.2 mg/dL (0.2 mg/dL) Urine Leukocyte Esterase Negative (NEG) Urine RBC 0 /HPF (0-2) Urine WBC 0 /HPF (0-4) Urine Squamous Epithelial Cells Few /LPF Urine Bacteria 0 /HPF (0-FEW) Sodium Level 135 mmol/L (136-145) Potassium Level 3.8 mmol/L (3.5-5.1) Chloride Level 96 mmol/L (98-107) Carbon Dioxide Level 29 mmol/L (21-32) Anion Gap 10 (6-14) Blood Urea Nitrogen 5 mg/dL (7-20) Creatinine 0.7 mg/dL (0.6-1.0) Estimated GFR (Cockcroft-Gault) 84.5 BUN/Creatinine Ratio 7 (6-20) Glucose Level 114 mg/dL (70-99) Calcium Level 8.6 mg/dL (8.5-10.1) Magnesium Level 1.6 mg/dL (1.8-2.4) Total Bilirubin 0.4 mg/dL (0.2-1.0) Aspartate Amino Transf (AST/SGOT) 21 U/L (15-37) Alanine Aminotransferase (ALT/SGPT) 22 U/L (14-59) Alkaline Phosphatase 77 U/L (46-116) Troponin I Quantitative < 0.017 ng/mL (0.000-0.055) Total Protein 7.9 g/dL (6.4-8.2) Albumin 3.8 g/dL (3.4-5.0) Albumin/Globulin Ratio 0.9 (1.0-1.7) Lipase 152 U/L (73-393) Laboratory Tests Test 02/19/21 11:15 White Blood Count 4.7 x10^3/uL (4.0-11.0) Red Blood Count 4.91 x10^6/uL (3.50-5.40) Hemoglobin 16.1 g/dL (12.0-15.5) Hematocrit 46.4 % (36.0-47.0) Mean Corpuscular Volume 95 fL (79-100) Mean Corpuscular Hemoglobin 33 pg (25-35) Mean Corpuscular Hemoglobin Concent 35 g/dL (31-37) Red Cell Distribution Width 12.6 % (11.5-14.5) Platelet Count 149 x10^3/uL (140-400) Neutrophils (%) (Auto) 62 % (31-73) Lymphocytes (%) (Auto) 24 % (24-48) Monocytes (%) (Auto) 14 % (0-9) Eosinophils (%) (Auto) 0 % (0-3) Basophils (%) (Auto) 1 % (0-3) Neutrophils # (Auto) 2.9 x10^3/uL (1.8-7.7) Lymphocytes # (Auto) 1.1 x10^3/uL (1.0-4.8) Monocytes # (Auto) 0.6 x10^3/uL (0.0-1.1) Eosinophils # (Auto) 0.0 x10^3/uL (0.0-0.7) Basophils # (Auto) 0.0 x10^3/uL (0.0-0.2) Urine Collection Type Unknown Urine Color Yellow Urine Clarity Clear Urine pH 6.0 (<5.0-8.0) Urine Specific [place] 1.010 (1.000-1.030) Urine Protein Negative mg/dL (NEG-TRACE) Urine Glucose (UA) Negative mg/dL (NEG) Urine Ketones (Stick) Negative mg/dL (NEG) Urine Blood Moderate (NEG) Urine Nitrite Negative (NEG) Urine Bilirubin Negative (NEG) Urine Urobilinogen Dipstick 0.2 mg/dL (0.2 mg/dL) Urine Leukocyte Esterase Negative (NEG) Urine RBC 0 /HPF (0-2) Urine WBC 0 /HPF (0-4) Urine Squamous Epithelial Cells Few /LPF Urine Bacteria 0 /HPF (0-FEW) Sodium Level 135 mmol/L (136-145) Potassium Level 3.8 mmol/L (3.5-5.1) Chloride Level 96 mmol/L (98-107) Carbon Dioxide Level 29 mmol/L (21-32) Anion Gap 10 (6-14) Blood Urea Nitrogen 5 mg/dL (7-20) Creatinine 0.7 mg/dL (0.6-1.0) Estimated GFR (Cockcroft-Gault) 84.5 BUN/Creatinine Ratio 7 (6-20) Glucose Level 114 mg/dL (70-99) Calcium Level 8.6 mg/dL (8.5-10.1) Magnesium Level 1.6 mg/dL (1.8-2.4) Total Bilirubin 0.4 mg/dL (0.2-1.0) Aspartate Amino Transf (AST/SGOT) 21 U/L (15-37) Alanine Aminotransferase (ALT/SGPT) 22 U/L (14-59) Alkaline Phosphatase 77 U/L (46-116) Troponin I Quantitative < 0.017 ng/mL (0.000-0.055) Total Protein 7.9 g/dL (6.4-8.2) Albumin 3.8 g/dL (3.4-5.0) Albumin/Globulin Ratio 0.9 (1.0-1.7) Lipase 152 U/L (73-393) Images Images CT with hernias containing adipose tissues with inflammation Assessment/Plan Assessment/Plan umbilical hernia and RIH agree with admission given some decreased sats no emergent surgical plans as no bowel obstruction or compromise and hernias reduced strongly encouraged smoking cessation and would favor one month cessation prior to repair. Thanks for consult! CHELO KENDALL MD Feb 19, 2021 15:13
[2021-02-19] MEDS ORDERED: guaiFENesin DM 200MG/20MG 10 ML SYRUP PO PRN (15:30)
[2021-02-19] MEDS ORDERED: ALBUTEROL SULFATE 2.5 MG/3 ML NEBU. NEB PRN (15:30)
[2021-02-19] MEDS ORDERED: ACETAMINOPHEN 325 MG TABLET. PO PRN (15:30)
--- NOTE | 2021-02-19 15:39 | EKG ---
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
[2021-02-19] MEDS: IPRATRPIUM/ALBUTEROL 0.5/2.5MG 3 ML NEBU. NEB SCH ×2 (15:41→20:00)
[2021-02-19] MEDS: methylPREDNISolone SOD SUCC PF 40 MG/ML VIAL. IV SCH ×2 (16:00→22:49)
[2021-02-19 16:20] VITALS: BP 138/72
[2021-02-19] MEDS ORDERED: PSYL0.4C2 PO (16:44)
[2021-02-19] MEDS ORDERED: ACET500T68 PO (16:44)
[2021-02-19 19:00] VITALS: BP 115/63
[2021-02-19] MEDS: BUDESONIDE 0.5 MG/2 ML NEBU. NEB SCH (20:00)
[2021-02-19] MEDS: MORPHINE SULFATE 2 MG/ML INJ. IV PRN (21:06)
[2021-02-19] MEDS: ENOXAPARIN 40 MG/0.4 ML SYRINGE. SQ SCH (21:14)
[2021-02-19] MEDS: PSYLLIUM HUSK (SUGAR FREE) 1 PKT PACKET PO SCH (21:14)
[2021-02-19] MEDS: traMADol 50 MG TABLET PO PRN (22:49)
[2021-02-19 23:06] VITALS: BP 140/60
[2021-02-20] MEDS: MORPHINE SULFATE 2 MG/ML INJ. IV PRN (02:46)
[2021-02-20 03:11] VITALS: BP 143/71
[2021-02-20] MEDS: methylPREDNISolone SOD SUCC PF 40 MG/ML VIAL. IV SCH ×3 (05:37→22:13)
[2021-02-20] MEDS: traMADol 50 MG TABLET PO PRN ×2 (05:38→17:53)
[2021-02-20] MEDS: IPRATRPIUM/ALBUTEROL 0.5/2.5MG 3 ML NEBU. NEB SCH ×3 (06:45→14:51)
[2021-02-20] MEDS: BUDESONIDE 0.5 MG/2 ML NEBU. NEB SCH (06:45)
[2021-02-20 07:00] VITALS: BP 129/69
[2021-02-20 08:18] LABS: CALCIUM 8.7 mg/dL (8.5-10.1); CREATININE 0.6 mg/dL (0.6-1.0); MAGNESIUM 1.8 mg/dL (1.8-2.4); POTASSIUM 4.3 mmol/L (3.5-5.1)
[2021-02-20] MEDS: NICOTINE 14MG PATCH. TD PRN (10:19)
[2021-02-20 11:00] VITALS: BP 119/65
--- NOTE | 2021-02-20 11:19 | PDOC ---
CASSIDY MURILLO FILER REPAIRER 02/20/21 1119: SURGICAL PROGRESS NOTE DATE: 02/20/21 TIME: 11:18 Subjective pt not seen, isolation for pending covid d/w nurse, tolerating diet, no pain can FU in clinic to discuss repair after smoking cessation Vital Signs Vital Signs Date Time Temp Pulse Resp B/P (MAP) Pulse Ox O2 Delivery O2 Flow Rate FiO2 02/20/21 11:00 98.1 74 20 119/65 (83) 90 Nasal Cannula 98.1 02/20/21 06:08 2.0 I&O Intake and Output 02/20/21 07:00 # Voids 2 Labs Laboratory Tests Test 02/19/21 11:15 02/20/21 05:50 White Blood Count 4.7 x10^3/uL (4.0-11.0) Red Blood Count 4.91 x10^6/uL (3.50-5.40) Hemoglobin 16.1 g/dL (12.0-15.5) Hematocrit 46.4 % (36.0-47.0) Mean Corpuscular Volume 95 fL (79-100) Mean Corpuscular Hemoglobin 33 pg (25-35) Mean Corpuscular Hemoglobin Concent 35 g/dL (31-37) Red Cell Distribution Width 12.6 % (11.5-14.5) Platelet Count 149 x10^3/uL (140-400) Neutrophils (%) (Auto) 62 % (31-73) Lymphocytes (%) (Auto) 24 % (24-48) Monocytes (%) (Auto) 14 % (0-9) Eosinophils (%) (Auto) 0 % (0-3) Basophils (%) (Auto) 1 % (0-3) Neutrophils # (Auto) 2.9 x10^3/uL (1.8-7.7) Lymphocytes # (Auto) 1.1 x10^3/uL (1.0-4.8) Monocytes # (Auto) 0.6 x10^3/uL (0.0-1.1) Eosinophils # (Auto) 0.0 x10^3/uL (0.0-0.7) Basophils # (Auto) 0.0 x10^3/uL (0.0-0.2) Urine Collection Type Unknown Urine Color Yellow Urine Clarity Clear Urine pH 6.0 (<5.0-8.0) Urine Specific [place] 1.010 (1.000-1.030) Urine Protein Negative mg/dL (NEG-TRACE) Urine Glucose (UA) Negative mg/dL (NEG) Urine Ketones (Stick) Negative mg/dL (NEG) Urine Blood Moderate (NEG) Urine Nitrite Negative (NEG) Urine Bilirubin Negative (NEG) Urine Urobilinogen Dipstick 0.2 mg/dL (0.2 mg/dL) Urine Leukocyte Esterase Negative (NEG) Urine RBC 0 /HPF (0-2) Urine WBC 0 /HPF (0-4) Urine Squamous Epithelial Cells Few /LPF Urine Bacteria 0 /HPF (0-FEW) Sodium Level 135 mmol/L (136-145) 136 mmol/L (136-145) Potassium Level 3.8 mmol/L (3.5-5.1) 4.3 mmol/L (3.5-5.1) Chloride Level 96 mmol/L (98-107) 99 mmol/L (98-107) Carbon Dioxide Level 29 mmol/L (21-32) 31 mmol/L (21-32) Anion Gap 10 (6-14) 6 (6-14) Blood Urea Nitrogen 5 mg/dL (7-20) 4 mg/dL (7-20) Creatinine 0.7 mg/dL (0.6-1.0) 0.6 mg/dL (0.6-1.0) Estimated GFR (Cockcroft-Gault) 84.5 101.0 BUN/Creatinine Ratio 7 (6-20) Glucose Level 114 mg/dL (70-99) 165 mg/dL (70-99) Calcium Level 8.6 mg/dL (8.5-10.1) 8.7 mg/dL (8.5-10.1) Magnesium Level 1.6 mg/dL (1.8-2.4) 1.8 mg/dL (1.8-2.4) Total Bilirubin 0.4 mg/dL (0.2-1.0) Aspartate Amino Transf (AST/SGOT) 21 U/L (15-37) Alanine Aminotransferase (ALT/SGPT) 22 U/L (14-59) Alkaline Phosphatase 77 U/L (46-116) Troponin I Quantitative < 0.017 ng/mL (0.000-0.055) Total Protein 7.9 g/dL (6.4-8.2) Albumin 3.8 g/dL (3.4-5.0) Albumin/Globulin Ratio 0.9 (1.0-1.7) Lipase 152 U/L (73-393) Laboratory Tests Test 02/20/21 05:50 Sodium Level 136 mmol/L (136-145) Potassium Level 4.3 mmol/L (3.5-5.1) Chloride Level 99 mmol/L (98-107) Carbon Dioxide Level 31 mmol/L (21-32) Anion Gap 6 (6-14) Blood Urea Nitrogen 4 mg/dL (7-20) Creatinine 0.6 mg/dL (0.6-1.0) Estimated GFR (Cockcroft-Gault) 101.0 Glucose Level 165 mg/dL (70-99) Calcium Level 8.7 mg/dL (8.5-10.1) Magnesium Level 1.8 mg/dL (1.8-2.4) Problem List Problems Medical Problems: (1) Intractable abdominal pain Status: Acute (2) Person under investigation for COVID-19 Status: Acute Justicifation of Admission Dx: Justifications for Admission: Justification of Admission Dx: Yes Comments: hypoxia CHELO KENDALL MD 02/20/21 1318: SURGICAL PROGRESS NOTE Assessment/Plan Pt seen and examined. Agree with Ms. Murillo's note Pt feels better, mariely diet abd soft, ND, NTTP encouraged smoking cessation and f/u for elective repair will sign off, but please call for questions. CASSIDY MURILLO APRN Feb 20, 2021 11:19 CHELO KENDALL MD Feb 20, 2021 13:18
--- NOTE | 2021-02-20 12:58 | NUR ---
SW following. Discussed with RN, pt from home, 2L (does not use at home), regular diet. Pt currently PUI for COVID. Per surgery pt can follow up outpatient for repair after smoking cessation. Med Assist following for self pay status. SW will continue to follow.
[2021-02-20 15:00] VITALS: BP 138/61
--- NOTE | 2021-02-20 16:08 | PDOC ---
PULMONARY PROGRESS NOTES DATE: 02/20/21 TIME: 16:07 Vitals Vital Signs Date Time Temp Pulse Resp B/P (MAP) Pulse Ox O2 Delivery O2 Flow Rate FiO2 02/20/21 15:00 97.9 75 18 138/61 (86) 93 Nasal Cannula 97.9 02/20/21 06:08 2.0 Labs Laboratory Tests Test 02/19/21 11:15 02/19/21 12:11 02/20/21 05:50 White Blood Count 4.7 x10^3/uL (4.0-11.0) Red Blood Count 4.91 x10^6/uL (3.50-5.40) Hemoglobin 16.1 g/dL (12.0-15.5) Hematocrit 46.4 % (36.0-47.0) Mean Corpuscular Volume 95 fL (79-100) Mean Corpuscular Hemoglobin 33 pg (25-35) Mean Corpuscular Hemoglobin Concent 35 g/dL (31-37) Red Cell Distribution Width 12.6 % (11.5-14.5) Platelet Count 149 x10^3/uL (140-400) Neutrophils (%) (Auto) 62 % (31-73) Lymphocytes (%) (Auto) 24 % (24-48) Monocytes (%) (Auto) 14 % (0-9) Eosinophils (%) (Auto) 0 % (0-3) Basophils (%) (Auto) 1 % (0-3) Neutrophils # (Auto) 2.9 x10^3/uL (1.8-7.7) Lymphocytes # (Auto) 1.1 x10^3/uL (1.0-4.8) Monocytes # (Auto) 0.6 x10^3/uL (0.0-1.1) Eosinophils # (Auto) 0.0 x10^3/uL (0.0-0.7) Basophils # (Auto) 0.0 x10^3/uL (0.0-0.2) Urine Collection Type Unknown Urine Color Yellow Urine Clarity Clear Urine pH 6.0 (<5.0-8.0) Urine Specific [place] 1.010 (1.000-1.030) Urine Protein Negative mg/dL (NEG-TRACE) Urine Glucose (UA) Negative mg/dL (NEG) Urine Ketones (Stick) Negative mg/dL (NEG) Urine Blood Moderate (NEG) Urine Nitrite Negative (NEG) Urine Bilirubin Negative (NEG) Urine Urobilinogen Dipstick 0.2 mg/dL (0.2 mg/dL) Urine Leukocyte Esterase Negative (NEG) Urine RBC 0 /HPF (0-2) Urine WBC 0 /HPF (0-4) Urine Squamous Epithelial Cells Few /LPF Urine Bacteria 0 /HPF (0-FEW) Sodium Level 135 mmol/L (136-145) 136 mmol/L (136-145) Potassium Level 3.8 mmol/L (3.5-5.1) 4.3 mmol/L (3.5-5.1) Chloride Level 96 mmol/L (98-107) 99 mmol/L (98-107) Carbon Dioxide Level 29 mmol/L (21-32) 31 mmol/L (21-32) Anion Gap 10 (6-14) 6 (6-14) Blood Urea Nitrogen 5 mg/dL (7-20) 4 mg/dL (7-20) Creatinine 0.7 mg/dL (0.6-1.0) 0.6 mg/dL (0.6-1.0) Estimated GFR (Cockcroft-Gault) 84.5 101.0 BUN/Creatinine Ratio 7 (6-20) Glucose Level 114 mg/dL (70-99) 165 mg/dL (70-99) Calcium Level 8.6 mg/dL (8.5-10.1) 8.7 mg/dL (8.5-10.1) Magnesium Level 1.6 mg/dL (1.8-2.4) 1.8 mg/dL (1.8-2.4) Total Bilirubin 0.4 mg/dL (0.2-1.0) Aspartate Amino Transf (AST/SGOT) 21 U/L (15-37) Alanine Aminotransferase (ALT/SGPT) 22 U/L (14-59) Alkaline Phosphatase 77 U/L (46-116) Troponin I Quantitative < 0.017 ng/mL (0.000-0.055) Total Protein 7.9 g/dL (6.4-8.2) Albumin 3.8 g/dL (3.4-5.0) Albumin/Globulin Ratio 0.9 (1.0-1.7) Lipase 152 U/L (73-393) SARS-CoV-2 RNA (LUIS M) Positive (Negative) Laboratory Tests Test 02/20/21 05:50 Sodium Level 136 mmol/L (136-145) Potassium Level 4.3 mmol/L (3.5-5.1) Chloride Level 99 mmol/L (98-107) Carbon Dioxide Level 31 mmol/L (21-32) Anion Gap 6 (6-14) Blood Urea Nitrogen 4 mg/dL (7-20) Creatinine 0.6 mg/dL (0.6-1.0) Estimated GFR (Cockcroft-Gault) 101.0 Glucose Level 165 mg/dL (70-99) Calcium Level 8.7 mg/dL (8.5-10.1) Magnesium Level 1.8 mg/dL (1.8-2.4) Medications Active Scripts Medications Dose Route/Sig Max Daily Dose Days Date Category Acetaminophen 500 Mg Tablet 1 Tab PO PRN Q6HRS PRN 15 02/19/21 Reported Metamucil (Psyllium Husk) 0.4 Gm Capsule 2 Cap PO BID 30 02/19/21 Reported Impression . full note dictated covid 19 viral pneumonia see orders thanks DALY MYLES MD Feb 20, 2021 16:08
[2021-02-20] MEDS ORDERED: ALBUTEROL SULFATE 8GM INHALER. INH PRN (16:15)
--- NOTE | 2021-02-20 16:18 | PDOC ---
[employer] PROGRESS NOTE Date of Service DOS: DATE: 02/20/21 TIME: 16:14 Chief Complaint Chief Complaint COVID + pneumonia - continue with O2 supplementation, IV steroids, combivent, B1, Vitamin C, and Zinc. Pulm consulted. Intractable abdominal pain - possibly from fat inflammation from hernia, will a dmit for pain control. Given smoking and easily reducible hernia high risk for surgery. Acute respiratory failure with hypoxia - likely mild COPD exacerbation, will give nebs, steroids. Smoking cessation emphasized. Wean O2 as tolerated. COVID tested Hypokalemia and hypomagnesemia - will replace Smoker - counseled on cessation Chronic right inguinal and periumbilical hernia - as above, no immediate surgical needs. General surgery plans for outpt surgery once smoking cessation for 1 month FEN - General diet PPX - lovenox FULL CODE Dispo - inpatient for pain control, hypoxia History of Present Illness History of Present Illness 65 year old female with past medical history 2 pack/day smoking and right inguinal and abdominal wall hernia who presents to ED with her daughter c/o pain in her right abdomen and flank for the last 3 days. Pain is sharp like a "stitch" in her side and can improve with positioning. It is worsened with deep inspiration. She currently rates her pain a 6 out of 10 on the pain scale after having morphine. She has associated nausea but no vomiting no diarrhea. No urinary symptoms no dysuria or hematuria frequency. She has a history of an umbilical and a right inguinal hernia and because of her right flank pain has been unable to wear her umbilical hernia binder. At baseline she has what she calls a "smoker's cough". This has not worsened recently. She does note she has cut back from 2 packs a day to 1 pack a day smoking but every time she quit smoking her cough gets worse for about 3 to 7 days and improves when she started smoking again. She expresses interest in quitting smoking. In ED was noted to have O2 saturations 87% and was placed on nasal cannula O2 with improvement. She denies any recent change in her cough, chest pain, shortness of breath, palpitations, dizziness, or loss of taste/smell. No COVID 19 exposures. She has not been immunized against COVID-19, she was going to go this week to get the immunization but was not feeling well so she postponed her plans., she denies any alleviating factors, the pain is worse with palpation. Labs with WBC 4.7, Hb 16.1, platelets 149, NA 135, K3.8, BUN 5, CR 0.7, glucose 114, magnesium 1.6, lipase 152, LFTs within normal laboratory limits, troponin 0, urinalysis bland. Chest radiograph with bibasilar atelectasis otherwise looks like emphysematous changes. CT abdomen pelvis with some inflamed fat stranding but no incarceration of her umbilical hernia. Admitted for pain control and supplementary O2 02/20/21 No major events overnight. Saturating 92% 2NC. COVID + today. Feels improved. Pt will need PSG upon discharge.> 50% time spent in patient chart, labs, and image review and discussion with RN and SW Vitals/I&O Vitals/I&O: Vital Signs Date Time Temp Pulse Resp B/P (MAP) Pulse Ox O2 Delivery O2 Flow Rate FiO2 02/20/21 15:00 97.9 75 18 138/61 (86) 93 Nasal Cannula 97.9 02/20/21 06:08 2.0 Physical Exam General: Alert, Oriented X3, Cooperative, moderate distress Abdomen: Normal bowel sounds, Soft, No hepatosplenomegaly, No masses, Other (umbilical and right groin and flank tenderness) Extremities: No clubbing, No cyanosis, No edema, Normal pulses, No tenderness/swelling Skin: No rashes, No breakdown, No significant lesion Labs Labs: Laboratory Tests Test 02/20/21 05:50 Sodium Level 136 mmol/L (136-145) Potassium Level 4.3 mmol/L (3.5-5.1) Chloride Level 99 mmol/L (98-107) Carbon Dioxide Level 31 mmol/L (21-32) Anion Gap 6 (6-14) Blood Urea Nitrogen 4 mg/dL (7-20) Creatinine 0.6 mg/dL (0.6-1.0) Estimated GFR (Cockcroft-Gault) 101.0 Glucose Level 165 mg/dL (70-99) Calcium Level 8.7 mg/dL (8.5-10.1) Magnesium Level 1.8 mg/dL (1.8-2.4) Assessment and Plan Assessmemt and Plan Problems Medical Problems: (1) Intractable abdominal pain Status: Acute (2) Person under investigation for COVID-19 Status: Acute Comment Review of Relevant I have reviewed the following items vin (where applicable) has been applied. Medications: Current Medications Medications (Trade) Dose Ordered Sig/Dalia Route PRN Reason Start Time Stop Time Status Last Admin Dose Admin Psyllium Hydrophilic Mucilloid (Metamucil Fiber Packet) 1 pkt QHS PO 02/19/21 21:00 02/19/21 21:14 Enoxaparin Sodium (Lovenox 40mg Syringe) 40 mg Q24H SQ 02/19/21 21:00 02/19/21 21:14 Justifications for Admission Other Justification CELINA SALINAS MD Feb 20, 2021 16:18
[2021-02-20] MEDS: ZINC SULFATE 220 MG CAPSULE. PO SCH (17:48)
[2021-02-20] MEDS: ASCORBIC ACID 1,000 MG TABLET PO SCH (17:49)
[2021-02-20] MEDS: CHOLECALCIFEROL (VITAMIN D3) 5,000 UNIT CAPSULE PO SCH (17:49)
[2021-02-20 19:00] VITALS: BP 161/80
[2021-02-20] MEDS: FLUTICASONE/VILANTEROL 100/25 INHALER. INH SCH (22:12)
[2021-02-20] MEDS: IPRATROPIUM/ALBUTEROL 20/100mcg/INH INHALER. INH SCH (22:12)
[2021-02-20] MEDS: PSYLLIUM HUSK (SUGAR FREE) 1 PKT PACKET PO SCH (22:13)
[2021-02-20] MEDS: ENOXAPARIN 40 MG/0.4 ML SYRINGE. SQ SCH (22:13)
--- NOTE | 2021-02-20 22:40 | CONS ---
DATE OF CONSULTATION: 02/20/2021 ATTENDING PHYSICIAN: Arjun Baker MD REASON FOR CONSULTATION: The patient is seen in Pulmonary consultation at the request of Dr. Baker for hypoxemia, positive SARS-CoV-2 testing. HISTORY OF PRESENT ILLNESS: The patient is a 65-year-old with a longstanding history of umbilical and right inguinal bulge hernia. She wears an abdominal binder. She was concerned about her hernia. She presented to the Emergency Room. Hernia was reduced in the Emergency Department. The patient was evaluated for the possibility of surgery. She had some lab testing including SARS-CoV-2 which came back positive. She was admitted. She states that over the last several weeks, she has actually noticed some low oxygen level. She was seen by her surgeon for followup and was noted to have a low oxygen level. She does smoke up to 2 packs of cigarettes a day, suspected to have underlying COPD, never diagnosed. PAST MEDICAL HISTORY: 1. Tobacco dependence. 2. COPD. 3. Unknown FEV1. 4. Chronic umbilical and right inguinal hernia. PAST SURGICAL HISTORY: Right hip surgery. FAMILY HISTORY: Chronic bronchitis. ALLERGIES: No known drug allergies. CURRENT MEDICATIONS: List was reviewed. REVIEW OF SYSTEMS: As indicated above, otherwise a 10-point system was reviewed and negative. PHYSICAL EXAMINATION: VITAL SIGNS: Stable. O2 saturation currently on 2 liters was greater than 92%. HEENT: Eyes: The sclerae were nonicteric. NECK: Jugular venous distention was not elevated. No lymphadenopathy. CHEST: Full expansion. LUNGS: Adequate flow with no wheezes. CARDIOVASCULAR: Regular rate and rhythm with S1, S2. No S3. ABDOMEN: Soft, nontender, nondistended. EXTREMITIES: No clubbing, cyanosis or edema. NEUROLOGIC: The patient was awake, alert, following commands. A detailed neuro exam was not performed. LABORATORY DATA: MAR was reviewed as indicated above. SARS-CoV-2 is positive. White count was normal. Hemoglobin and hematocrit were noted. IMAGING DATA: Chest x-ray, some basilar atelectasis. CT abdomen and pelvis: The upper cuts reviewing the lower chest, was unremarkable. IMPRESSION: 1. Acute hypoxemic respiratory failure secondary to SARS-CoV-2. 2. COVID-19 viral pneumonia. 3. Umbilical and inguinal hernia. 4. Morbid obesity. 5. Acute exacerbation of chronic obstructive pulmonary disease. PLAN: 1. Continue oxygen supplementation. 2. Steroids. 3. Nebulized treatments. 4. DVT prophylaxis. 5. Vitamin D, zinc and vitamin C. I do appreciate the privilege in sharing in this patient's care. AUROR[place] DR: Gabriela TID: [id number]
[2021-02-20 23:00] VITALS: BP 168/75
[2021-02-21] MEDS: methylPREDNISolone SOD SUCC PF 40 MG/ML VIAL. IV SCH ×3 (06:00→21:05)
[2021-02-21 07:00] VITALS: BP 142/73
[2021-02-21] MEDS: ZINC SULFATE 220 MG CAPSULE. PO SCH (09:04)
--- NOTE | 2021-02-21 09:04 | PDOC ---
PULMONARY PROGRESS NOTES DATE: 02/21/21 TIME: 09:04 Subjective Resting on 2 liters NC feels about the same no overnight concerns Vitals Vital Signs Date Time Temp Pulse Resp B/P (MAP) Pulse Ox O2 Delivery O2 Flow Rate FiO2 02/21/21 07:00 97.9 66 18 142/73 (96) 90 Nasal Cannula 2.0 97.9 ROS: No Nausea, No Chest Pain, No Abdominal Pain, No Increase Cough General: Alert, Oriented X4 Lungs: Clear Cardiovascular: S1, S2 Abdomen: Soft Neuro Exam: Alert Extremities: No Edema Skin: Warm Labs Laboratory Tests Test 02/19/21 11:15 02/19/21 12:11 02/20/21 05:50 White Blood Count 4.7 x10^3/uL (4.0-11.0) Red Blood Count 4.91 x10^6/uL (3.50-5.40) Hemoglobin 16.1 g/dL (12.0-15.5) Hematocrit 46.4 % (36.0-47.0) Mean Corpuscular Volume 95 fL (79-100) Mean Corpuscular Hemoglobin 33 pg (25-35) Mean Corpuscular Hemoglobin Concent 35 g/dL (31-37) Red Cell Distribution Width 12.6 % (11.5-14.5) Platelet Count 149 x10^3/uL (140-400) Neutrophils (%) (Auto) 62 % (31-73) Lymphocytes (%) (Auto) 24 % (24-48) Monocytes (%) (Auto) 14 % (0-9) Eosinophils (%) (Auto) 0 % (0-3) Basophils (%) (Auto) 1 % (0-3) Neutrophils # (Auto) 2.9 x10^3/uL (1.8-7.7) Lymphocytes # (Auto) 1.1 x10^3/uL (1.0-4.8) Monocytes # (Auto) 0.6 x10^3/uL (0.0-1.1) Eosinophils # (Auto) 0.0 x10^3/uL (0.0-0.7) Basophils # (Auto) 0.0 x10^3/uL (0.0-0.2) Urine Collection Type Unknown Urine Color Yellow Urine Clarity Clear Urine pH 6.0 (<5.0-8.0) Urine Specific [place] 1.010 (1.000-1.030) Urine Protein Negative mg/dL (NEG-TRACE) Urine Glucose (UA) Negative mg/dL (NEG) Urine Ketones (Stick) Negative mg/dL (NEG) Urine Blood Moderate (NEG) Urine Nitrite Negative (NEG) Urine Bilirubin Negative (NEG) Urine Urobilinogen Dipstick 0.2 mg/dL (0.2 mg/dL) Urine Leukocyte Esterase Negative (NEG) Urine RBC 0 /HPF (0-2) Urine WBC 0 /HPF (0-4) Urine Squamous Epithelial Cells Few /LPF Urine Bacteria 0 /HPF (0-FEW) Sodium Level 135 mmol/L (136-145) 136 mmol/L (136-145) Potassium Level 3.8 mmol/L (3.5-5.1) 4.3 mmol/L (3.5-5.1) Chloride Level 96 mmol/L (98-107) 99 mmol/L (98-107) Carbon Dioxide Level 29 mmol/L (21-32) 31 mmol/L (21-32) Anion Gap 10 (6-14) 6 (6-14) Blood Urea Nitrogen 5 mg/dL (7-20) 4 mg/dL (7-20) Creatinine 0.7 mg/dL (0.6-1.0) 0.6 mg/dL (0.6-1.0) Estimated GFR (Cockcroft-Gault) 84.5 101.0 BUN/Creatinine Ratio 7 (6-20) Glucose Level 114 mg/dL (70-99) 165 mg/dL (70-99) Calcium Level 8.6 mg/dL (8.5-10.1) 8.7 mg/dL (8.5-10.1) Magnesium Level 1.6 mg/dL (1.8-2.4) 1.8 mg/dL (1.8-2.4) Total Bilirubin 0.4 mg/dL (0.2-1.0) Aspartate Amino Transf (AST/SGOT) 21 U/L (15-37) Alanine Aminotransferase (ALT/SGPT) 22 U/L (14-59) Alkaline Phosphatase 77 U/L (46-116) Troponin I Quantitative < 0.017 ng/mL (0.000-0.055) Total Protein 7.9 g/dL (6.4-8.2) Albumin 3.8 g/dL (3.4-5.0) Albumin/Globulin Ratio 0.9 (1.0-1.7) Lipase 152 U/L (73-393) SARS-CoV-2 RNA (LUIS M) Positive (Negative) Medications Active Scripts Medications Dose Route/Sig Max Daily Dose Days Date Category Acetaminophen 500 Mg Tablet 1 Tab PO PRN Q6HRS PRN 15 02/19/21 Reported Metamucil (Psyllium Husk) 0.4 Gm Capsule 2 Cap PO BID 30 02/19/21 Reported Impression . IMPRESSION: 1. Acute hypoxemic respiratory failure secondary to SARS-CoV-2. 2. COVID-19 viral pneumonia. 3. Umbilical and inguinal hernia. 4. Morbid obesity. 5. Acute exacerbation of chronic obstructive pulmonary disease. Plan . 02/21/21 Continue supplemental oxygen to keep sats above 92%, currently on 2 liters NC six min walk before discharge isolation precautions, COVID-19 positive Continue steroids, will need full 10 day course NEBS Continue Vitamin D, zinc and vitamin C DVT/GI PPX :lovenox D/W DALY CORNELIUS MD Feb 21, 2021 09:04
[2021-02-21] MEDS: CHOLECALCIFEROL (VITAMIN D3) 5,000 UNIT CAPSULE PO SCH (09:05)
[2021-02-21] MEDS: FLUTICASONE/VILANTEROL 100/25 INHALER. INH SCH (09:05)
[2021-02-21] MEDS: IPRATROPIUM/ALBUTEROL 20/100mcg/INH INHALER. INH SCH ×4 (09:05→21:06)
[2021-02-21] MEDS: ASCORBIC ACID 1,000 MG TABLET PO SCH ×3 (09:05→16:46)
[2021-02-21 11:00] VITALS: BP 140/72
[2021-02-21] MEDS: traMADol 50 MG TABLET PO PRN (12:08)
--- NOTE | 2021-02-21 12:26 | PDOC ---
[employer] PROGRESS NOTE Date of Service DOS: DATE: 02/21/21 TIME: 12:24 Chief Complaint Chief Complaint COVID + pneumonia - continue with O2 supplementation, IV steroids, combivent, B1, Vitamin C, and Zinc. Pulm consulted. Intractable abdominal pain - possibly from fat inflammation from hernia, will a dmit for pain control. Given smoking and easily reducible hernia high risk for surgery. Acute respiratory failure with hypoxia - likely mild COPD exacerbation, will give nebs, steroids. Smoking cessation emphasized. Wean O2 as tolerated. COVID tested Hypokalemia and hypomagnesemia - will replace Smoker - counseled on cessation Chronic right inguinal and periumbilical hernia - as above, no immediate surgical needs. General surgery plans for outpt surgery once smoking cessation for 1 month FEN - General diet PPX - lovenox FULL CODE Dispo - inpatient for pain control, hypoxia History of Present Illness History of Present Illness 65 year old female with past medical history 2 pack/day smoking and right inguinal and abdominal wall hernia who presents to ED with her daughter c/o pain in her right abdomen and flank for the last 3 days. Pain is sharp like a "stitch" in her side and can improve with positioning. It is worsened with deep inspiration. She currently rates her pain a 6 out of 10 on the pain scale after having morphine. She has associated nausea but no vomiting no diarrhea. No urinary symptoms no dysuria or hematuria frequency. She has a history of an umbilical and a right inguinal hernia and because of her right flank pain has been unable to wear her umbilical hernia binder. At baseline she has what she calls a "smoker's cough". This has not worsened recently. She does note she has cut back from 2 packs a day to 1 pack a day smoking but every time she quit smoking her cough gets worse for about 3 to 7 days and improves when she started smoking again. She expresses interest in quitting smoking. In ED was noted to have O2 saturations 87% and was placed on nasal cannula O2 with improvement. She denies any recent change in her cough, chest pain, shortness of breath, palpitations, dizziness, or loss of taste/smell. No COVID 19 exposures. She has not been immunized against COVID-19, she was going to go this week to get the immunization but was not feeling well so she postponed her plans., she denies any alleviating factors, the pain is worse with palpation. Labs with WBC 4.7, Hb 16.1, platelets 149, NA 135, K3.8, BUN 5, CR 0.7, glucose 114, magnesium 1.6, lipase 152, LFTs within normal laboratory limits, troponin 0, urinalysis bland. Chest radiograph with bibasilar atelectasis otherwise looks like emphysematous changes. CT abdomen pelvis with some inflamed fat stranding but no incarceration of her umbilical hernia. Admitted for pain control and supplementary O2 02/20/21 No major events overnight. Saturating 92% 2NC. COVID + today. Feels improved. Pt will need PSG upon discharge.> 50% time spent in patient chart, labs, and image review and discussion with RN and SW 02/21/21 No acute events overnight. Patient seen and examined bedside. Pt on 2LNC saturatin in 91%. Some improvement. No concerns from nursing. Pt baseline is without o2 at home. > 50% time spent in patient chart, labs, and image review and discussion with RN and SW Vitals/I&O Vitals/I&O: Vital Signs Date Time Temp Pulse Resp B/P (MAP) Pulse Ox O2 Delivery O2 Flow Rate FiO2 02/21/21 12:08 91 Nasal Cannula 2.0 02/21/21 11:00 97.9 71 18 140/72 (94) 97.9 I & O 02/20/21 02/20/21 02/21/21 15:00 23:00 07:00 Intake Total 500 ml 200 ml 450 ml Balance 500 ml 200 ml 450 ml Physical Exam General: Alert, Oriented X3, Cooperative, moderate distress Abdomen: Normal bowel sounds, Soft, No hepatosplenomegaly, No masses, Other (umbilical and right groin and flank tenderness) Extremities: No clubbing, No cyanosis, No edema, Normal pulses, No tenderness/swelling Skin: No rashes, No breakdown, No significant lesion Assessment and Plan Assessmemt and Plan Problems Medical Problems: (1) Intractable abdominal pain Status: Acute (2) Person under investigation for COVID-19 Status: Acute Comment Review of Relevant I have reviewed the following items vin (where applicable) has been applied. Medications: Current Medications Medications (Trade) Dose Ordered Sig/Dalia Route PRN Reason Start Time Stop Time Status Last Admin Dose Admin Vitamin D (Vitamin D3) 5,000 unit DAILY PO 02/20/21 17:00 02/21/21 09:05 Zinc Sulfate (Orazinc) 220 mg DAILY PO 02/20/21 17:00 02/21/21 09:04 Ascorbic Acid (Vitamin C) 3,000 mg TIDWMEALS PO 02/20/21 17:00 02/21/21 12:09 Albuterol/ Ipratropium (Combivent Respimat 20-100 Mcg) 1 puff RTQID INH 02/20/21 20:00 02/21/21 12:09 Fluticasone/ Vilanterol (Breo Ellipta 100-25 Mcg) 1 puff DAILY INH 02/20/21 21:00 02/21/21 09:05 Justifications for Admission Other Justification CELINA SALINAS MD Feb 21, 2021 12:25
[2021-02-21] MEDS: NICOTINE 14MG PATCH. TD PRN (13:10)
[2021-02-21 15:00] VITALS: BP 140/61
[2021-02-21 19:58] VITALS: BP 144/74
[2021-02-21] MEDS: PSYLLIUM HUSK (SUGAR FREE) 1 PKT PACKET PO SCH (21:05)
[2021-02-21] MEDS: ENOXAPARIN 40 MG/0.4 ML SYRINGE. SQ SCH (21:06)
[2021-02-21 23:20] VITALS: BP 148/65
[2021-02-22 03:59] VITALS: BP 154/67
[2021-02-22] MEDS: methylPREDNISolone SOD SUCC PF 40 MG/ML VIAL. IV SCH (06:27)
[2021-02-22 07:00] VITALS: BP 135/72
[2021-02-22] MEDS ORDERED: predniSONE 20 MG TABLET PO SCH (09:00)
[2021-02-22] MEDS: traMADol 50 MG TABLET PO PRN (10:26)
[2021-02-22] MEDS: CHOLECALCIFEROL (VITAMIN D3) 5,000 UNIT CAPSULE PO SCH (10:26)
[2021-02-22] MEDS: NICOTINE 14MG PATCH. TD PRN (10:26)
[2021-02-22] MEDS: IPRATROPIUM/ALBUTEROL 20/100mcg/INH INHALER. INH SCH (10:27)
[2021-02-22] MEDS: ASCORBIC ACID 1,000 MG TABLET PO SCH (10:27)
[2021-02-22] MEDS: ZINC SULFATE 220 MG CAPSULE. PO SCH (10:27)
[2021-02-22] MEDS: FLUTICASONE/VILANTEROL 100/25 INHALER. INH SCH (10:27)
--- NOTE | 2021-02-22 10:37 | PDOC ---
PULMONARY PROGRESS NOTES DATE: 02/22/21 TIME: 10:37 Subjective Resting on 2 liters NC feels about the same no overnight concerns Vitals Vital Signs Date Time Temp Pulse Resp B/P (MAP) Pulse Ox O2 Delivery O2 Flow Rate FiO2 02/22/21 07:00 96.7 75 18 135/72 (93) 90 Nasal Cannula 1.0 96.7 ROS: No Nausea, No Chest Pain, No Abdominal Pain, No Increase Cough General: Alert, Oriented X4 Lungs: Clear Cardiovascular: S1, S2 Abdomen: Soft Neuro Exam: Alert Extremities: No Edema Skin: Warm Medications Active Scripts Medications Dose Route/Sig Max Daily Dose Days Date Category Acetaminophen 500 Mg Tablet 1 Tab PO PRN Q6HRS PRN 15 02/19/21 Reported Metamucil (Psyllium Husk) 0.4 Gm Capsule 2 Cap PO BID 30 02/19/21 Reported Impression . IMPRESSION: 1. Acute hypoxemic respiratory failure secondary to SARS-CoV-2. 2. COVID-19 viral pneumonia. 3. Umbilical and inguinal hernia. 4. Morbid obesity. 5. Acute exacerbation of chronic obstructive pulmonary disease. Plan . 02/21/21 Continue supplemental oxygen to keep sats above 92%, currently on 2 liters NC six min walk before discharge isolation precautions, COVID-19 positive Continue steroids, will need full 10 day course NEBS Continue Vitamin D, zinc and vitamin C DVT/GI PPX :lovenox D/W DALY CORNELIUS MD Feb 22, 2021 10:37
[2021-02-22 11:00] VITALS: BP 156/75
[2021-02-22] MEDS ORDERED: FLUT1AER2 INH (11:37)
[2021-02-22] MEDS ORDERED: PRED5TAB PO (11:37)
[2021-02-22] MEDS ORDERED: ASCO100019 PO (11:37)
[2021-02-22] MEDS ORDERED: PRED-220 PO (11:37)
[2021-02-22] MEDS ORDERED: PRED20TA PO (11:37)
--- NOTE | 2021-02-22 11:38 | DISCH ---
DISCHARGE INSTRUCTIONS Condition on Discharge Condition on Discharge: Stable Activity After Discharge Activity Instructions for Disc: Activity as tolerated Lifting Instructions after Dis: Do not lift >10 pounds Exercise Instruction after Dis: Walk 15 min, 3 x per day Driving Instructions after Dis: Do not drive today Weight Bearing Status after Di: Full weight bearing Diet after Discharge Diet after Discharge: Cardiac Follow-Up Follow up with: PCP within 2 weeks of discharge Follow Up With: Pulmonology as needed Treatment/Equipment after DC Discharge Respiratory Equipmen: Oxygen CELINA SALINAS MD Feb 22, 2021 11:38
--- NOTE | 2021-02-22 12:16 | NUR ---
SW following. Discussed with RN, pt did 6 minute walk - requiring oxygen at 2L with activity. Pt cannot afford $120 a month. 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 Pt is COVID-19 positive. Pt does not have any eligibility for Medicaid at this time. JULIENNE will continue to follow. Addendum: 02/22/21 at 1305 by BHARAT ROBINS [facility] can do a payment plan. Pt agreeable. Oxygen referral faxed to [facility], awaiting acceptance decision. Tank provided to RN for patient when approval from [facility] given.
--- NOTE | 2021-02-22 13:29 | NUR ---
pt not does not qualify for payment plan for home O2 and cannot afford the $120 per month out of pocket. SW and O2 company made aware. patient has opted to leave without O2.
--- NOTE | 2021-02-22 14:56 | NUR ---
patient discharged home with family. meds and follow up reviewed. patient provided with covid-19 education. pt stable upon dc. IV removed intact
[2021-02-24] MEDS ORDERED: predniSONE 10 MG TABLET PO SCH (09:00)
[2021-02-26] MEDS ORDERED: predniSONE 20 MG TABLET PO SCH (09:00)
[2021-02-28] MEDS ORDERED: predniSONE 10 MG TABLET PO SCH (09:00)
[2021-03-02] MEDS ORDERED: predniSONE 5 MG TABLET PO SCH (09:00)
== END 2021-02-22 13:45 | disposition home or self-care (01) | DRG 177 ==
LOC: ER 10:47 → 6 SOUTH 13:55
PROVIDERS: ADMIT Internal Medicine; ATTEND Internal Medicine
DX: U07.1 COVID-19 (principal); J12.82 Pneumonia due to coronavirus disease 2019; J96.01 Acute respiratory failure with hypoxia; J44.0 Chronic obstructive pulmonary disease with (acute) lower respiratory infection; J44.1 Chronic obstructive pulmonary disease with (acute) exacerbation; E66.01 Morbid (severe) obesity due to excess calories; Z68.27 Body mass index [BMI] 27.0-27.9, adult; E83.42 Hypomagnesemia; E87.6 Hypokalemia; F17.210 Nicotine dependence, cigarettes, uncomplicated; K40.90 Unilateral inguinal hernia, without obstruction or gangrene, not specified as recurrent; K42.9 Umbilical hernia without obstruction or gangrene; K57.30 Diverticulosis of large intestine without perforation or abscess without bleeding; Z82.5 Family history of asthma and other chronic lower respiratory diseases; Z96.649 Presence of unspecified artificial hip joint
CPT/HCPCS: 36415; 71045; 74177; 80048; 80053; 81001; 83690; 83735; 84484; 85025; 93005; 94618; 96361; 96365; 96375; J1650; J2270; J2920; J3475; J7030; J7512; Q9967; U0003; U0005; 99285-25; G0378